=== PATIENT | female | born 1980 | race Hispanic/Latino ===

== ENCOUNTER 2018-03-08 16:21 | Emergency (ER) | payer OTHER, SELFPAY ==
[~2018-03-08 16:21] MED LIST: Sodium Chloride 0.9% 1,000 ML BAG ONE
[2018-03-08] MEDS ORDERED: Famotidine In NaCl 20 mg/50 ml Premix Bag ONE (16:56)
[2018-03-08] MEDS ORDERED: Ondansetron ODT 4 MG TAB ONE (16:56)
[2018-03-08] MEDS ORDERED: Fentanyl 100 MCG/2 ML VIAL ONE ×2 (16:56→18:30)
[2018-03-08 17:02] LABS: Hemoglobin 13.2 g/dL (12.0-16.0); Mean Corpuscular HGB CONC 32.2 g/dL (32.0-36.0); Mean Corpuscular Hemoglobin 27.6 pg (27.0-31.0); Mean Platelet Volume 5.7 fL (7.4-10.4); Platelet Count 278 thou/uL (130-400); RBC Distribution Width 12.4 % (11.5-14.5); Red Blood Cell (RBC) Count 4.77 mill/uL (4.20-5.40); White Blood Cell (WBC) Count 9.1 thou/uL (4.8-10.8)
--- NOTE | 2018-03-08 17:02 | CT ---
CT ABDOMEN AND PELVIS WITHOUT IV CONTRAST: 03/08/18 HISTORY: Abdominal pain. FINDINGS: Images through the lung bases are clear. The liver, spleen, and pancreas are unremarkable. There are numerous gallstones identified in the gallbladder. There are at least two larger gallstones measuring up to 2 cm. no evidence of pericholecystic edema or inflammation identified. No evidence o f biliary duct dilatation. The adrenal glands are unremarkable. Kidneys unremarkable. No hydronephrosis or urinary calculus. Urinary bladder is contracted and not ev aluated. Small bowel loops appear unremarkable. Appendix appears normal. Colon unremarkable. The uterus and a dnexa unremarkable. There is an umbilical hernia. Mesenteric fat herniates into the subcutaneous tissues. Hernia sac with in the subcutaneous tissues measures approximately 3.5 cm width. IMPRESSION: 1. Cholelithiasis. 2. Umbilical hernia. POS: STACIE
[2018-03-08 17:03] LABS: #Basophils 0.1 thou/uL (0.0-0.2); #Eosinphils 0.2 thou/uL (0.0-0.7); #Lymphocytes 2.2 thou/uL (1.20-3.40); #Monocytes 0.8 thou/uL (0.11-0.59); #Neutrophils 5.8 thou/uL (1.40-6.50); %Basophils 0.7 % (0.0-1.0); %Eosinophils 2.1 % (0.0-10.0); %Lymphocytes 24.7 % (21.0-51.0); %Neutrophils 63.6 % (42.0-75.0)
[2018-03-08 17:14] LABS: Anion Gap 14 mmol/L (10-20); BUN (Urea Nitrogen) 12 mg/dL (7.0-18.7); Calc. Creatinine Clearance 0 mL/min (70-130); Calcium 9.4 mg/dL (7.8-10.44); Carbon Dioxide 25 mmol/L (22-29); Chloride 107 mmol/L (98-107); Estimated GFR-MDRD Greater than 90; Glucose 91 mg/dL (70-105); Sodium 142 mmol/L (136-145)
[2018-03-08 17:17] LABS: Bilirubin Negative (Negative); Blood, Urine Trace (Negative); Clarity Hazy (Clear); Glucose, Urine (Dipstick) Negative (Negative); Leukocyte Negative (Negative); Nitrite Negative (Negative); Protein, Urine (Dipstick) Negative (Neg-Trace); Urobilinogen 0.2 mg/dL (0.2-1.0)
[2018-03-08 17:23] LABS: Bacteria/HPF Rare-Few HPF (None Seen); RBC/HPF 0-3 HPF (0-3); WBC/HPF 0-3 HPF (0-3)
== END 2018-03-08 18:50 | disposition home or self-care (01) ==
LOC: MADERS 16:21
DX: K80.80 Other cholelithiasis without obstruction (principal)
CPT/HCPCS: 36415; 74176; 80048; 81003; 81015; 82150; 85025; 96361; 96365; 96375; 96376; J3010; J7050; Q0162

== ENCOUNTER 2018-03-10 09:14 | Outpatient (CLI) | payer OTHER ==
--- NOTE | 2018-03-10 11:09 | ULT ---
RIGHT UPPER QUADRANT ULTRASOUND: DATE: 03/10/18. COMPARISON: None. HISTORY: Abdominal pain. Recent CT demonstrates cholelithiasis. TECHNIQUE: Multiplanar, toro scale sonographic imaging of the right upper quadrant obtained. FINDINGS: Dilatation is seen. The imaged portions of the pancreas appear unremarkable. The ditching machine engineer reports a positive Garcia's sign. There are numerous gallstones seen within the gall bladder lumen. However, there is no gallbladder wall thickening or pericholecystic fluid. The commo n bile duct is normal in caliber, measuring 3-4 mm. The right kidney measures 13.3 cm craniocaudal d imension and demonstrates no evidence for stone, hydronephrosis, or mass. IMPRESSION: Numerous stones are seen within the gallbladder lumen. The ditching machine engineer reports a positive Garcia's s ign, which could signify acute cholecystitis in the proper clinical setting. However, there is no ga llbladder wall thickening or pericholecystic fluid. Clinical correlation is required. If further im aging assessment is clinically warranted, hepatobiliary scan could be best assessed to evaluate paten cy of the cystic duct. CODE T POS: STACIE
== END 2018-03-10 09:15 | disposition home or self-care (01) ==
LOC: MADULT 09:14
PROVIDERS: ATTEND Family Medicine
DX: K80.20 Calculus of gallbladder without cholecystitis without obstruction (principal); R10.84 Generalized abdominal pain; R14.0 Abdominal distension (gaseous)
CPT/HCPCS: 76705

== ENCOUNTER 2018-08-04 17:09 | Outpatient (CLI) | payer MEDICAID ==
[2018-08-04 17:58] LABS: ALT (SGPT) 22 U/L (8-55); AST (SGOT) 18 U/L (5-34); Alkaline Phosphatase 65 U/L (40-150); Anion Gap 14 mmol/L (10-20); BUN (Urea Nitrogen) 15 mg/dL (7.0-18.7); Bilirubin, Total 0.3 mg/dL (0.2-1.2); Calc. Creatinine Clearance 0 mL/min (70-130); Calcium 9.5 mg/dL (7.8-10.44); Carbon Dioxide 26 mmol/L (22-29); Chloride 105 mmol/L (98-107); Estimated GFR-MDRD Greater than 90; Globulin 3.7 g/dL (2.4-3.5); Glucose 105 mg/dL (70-105); Potassium 4.5 mmol/L (3.5-5.1); Protein, Total 7.7 g/dL (6.0-8.3); Sodium 140 mmol/L (136-145)
[2018-08-04 18:03] LABS: #Basophils 0.1 thou/uL (0.0-0.2); #Eosinphils 0.3 thou/uL (0.0-0.7); #Lymphocytes 1.9 thou/uL (1.20-3.40); #Monocytes 0.7 thou/uL (0.11-0.59); #Neutrophils 5.5 thou/uL (1.40-6.50); %Basophils 1.1 % (0.0-1.0); %Eosinophils 3.1 % (0.0-10.0); %Lymphocytes 22.8 % (21.0-51.0); %Monocytes 8.1 % (0.0-10.0); Hemoglobin 12.7 g/dL (12.0-16.0); Mean Corpuscular HGB CONC 32.3 g/dL (32.0-36.0); Mean Corpuscular Hemoglobin 28.8 pg (27.0-31.0); Mean Corpuscular Volume 89.1 fL (78.0-98.0); Platelet Count 311 thou/uL (130-400); RBC Distribution Width 12.7 % (11.5-14.5); Red Blood Cell (RBC) Count 4.42 mill/uL (4.20-5.40); White Blood Cell (WBC) Count 8.5 thou/uL (4.8-10.8)
[2018-08-04 18:13] LABS: Thyroid Stimulating Hormone 1.3443 uIU/mL (0.35-4.94)
[2018-08-04 22:03] LABS: Free T4 (Free Thyroxine) 0.99 ng/dL (0.70-1.48)
== END 2018-08-04 17:10 | disposition home or self-care (01) ==
LOC: MADEKG 17:09
PROVIDERS: ATTEND Family Medicine
DX: I49.8 Other specified cardiac arrhythmias (principal)
CPT/HCPCS: 36415; 80053; 84439; 84443; 84481; 85025; 93005; 93010

== ENCOUNTER 2019-05-29 19:31 | Emergency (ER) | payer OTHER ==
[2019-05-29] MEDS ORDERED: Clindamycin 150 MG CAP ONE (20:43)
[2019-05-29 21:06] LABS: #Basophils 0.1 thou/uL (0.0-0.2); #Eosinphils 0.2 thou/uL (0.0-0.7); #Monocytes 0.6 thou/uL (0.11-0.59); %Basophils 0.9 % (0.0-1.0); %Lymphocytes 18.5 % (21.0-51.0); %Monocytes 5.6 % (0.0-10.0); Hemoglobin 12.5 g/dL (12.0-16.0); Mean Corpuscular HGB CONC 32.4 g/dL (32.0-36.0); Mean Corpuscular Hemoglobin 29.6 pg (27.0-31.0); Mean Corpuscular Volume 91.5 fL (78.0-98.0); Platelet Count 223 thou/uL (130-400); RBC Distribution Width 13.2 % (11.5-14.5); Red Blood Cell (RBC) Count 4.23 mill/uL (4.20-5.40); White Blood Cell (WBC) Count 10.9 thou/uL (4.8-10.8)
--- NOTE | 2019-05-29 21:23 | RAD ---
THREE VIEWS RIGHT ANKLE: 05/29/19 HISTORY: Pain. COMPARISON: None. FINDINGS: Joint spaces are preserved. Ankle mortise is intact. No fracture. Spurring of the calcaneus at the pl ann aponeurosis site is noted. IMPRESSION: Unremarkable three views right ankle. POS: PPP
[2019-05-29 21:25] LABS: ALT (SGPT) 22 U/L (8-55); AST (SGOT) 18 U/L (5-34); Albumin 3.7 g/dL (3.5-5.0); Alkaline Phosphatase 63 U/L (40-150); Anion Gap 16 mmol/L (10-20); BUN (Urea Nitrogen) 10 mg/dL (7.0-18.7); Bilirubin, Total 0.3 mg/dL (0.2-1.2); CRP (Inflammatory) 2.57 mg/dL (= or < 0.5); Calc. Creatinine Clearance 0 mL/min (70-130); Carbon Dioxide 24 mmol/L (22-29); Estimated GFR-MDRD Greater than 90; Globulin 3.4 g/dL (2.4-3.5); Glucose 80 mg/dL (70-105); Potassium 4.2 mmol/L (3.5-5.1); Protein, Total 7.1 g/dL (6.0-8.3); Sodium 139 mmol/L (136-145)
[2019-05-29 21:30] LABS: Chloride 103 mmol/L (98-107)
== END 2019-05-29 21:45 | disposition home or self-care (01) ==
LOC: MADERS 19:31
DX: L03.115 Cellulitis of right lower limb (principal); I10 Essential (primary) hypertension
CPT/HCPCS: 80053; 85025; 86140; 87070; 87077; 87186; 87205

== ENCOUNTER 2020-06-18 16:25 | Emergency (ER) | payer OTHER ==
[2020-06-18] MEDS ORDERED: Dexamethasone 4 MG TAB ONE (17:37)
[2020-06-18] MEDS ORDERED: Ibuprofen 800 MG TAB ONE (17:37)
== END 2020-06-18 17:40 | disposition home or self-care (01) ==
LOC: MADERS 16:25
DX: M75.92 Shoulder lesion, unspecified, left shoulder (principal)
CPT/HCPCS: 99283; J8540

== ENCOUNTER 2021-02-24 09:41 | Outpatient (CLI) | payer OTHER ==
[2021-02-24 10:05] LABS: #Basophils 0.1 thou/uL (0.0-0.2); #Eosinphils 0.2 thou/uL (0.0-0.7); #Lymphocytes 1.9 thou/uL (1.20-3.40); #Monocytes 0.5 thou/uL (0.11-0.59); #Neutrophils 6.9 thou/uL (1.40-6.50); %Basophils 0.9 % (0.0-1.0); %Eosinophils 2.6 % (0.0-10.0); %Lymphocytes 19.5 % (21.0-51.0); %Monocytes 5.2 % (0.0-10.0); %Neutrophils 71.8 % (42.0-75.0); Hemoglobin 13.7 g/dL (12.0-16.0); Mean Corpuscular HGB CONC 31.2 g/dL (32.0-36.0); Mean Corpuscular Hemoglobin 28.9 pg (27.0-31.0); Mean Corpuscular Volume 92.6 fL (78.0-98.0); Mean Platelet Volume 6.6 fL (7.4-10.4); Platelet Count 332 thou/uL (130-400); RBC Distribution Width 12.2 % (11.5-14.5); Red Blood Cell (RBC) Count 4.72 mill/uL (4.20-5.40); White Blood Cell (WBC) Count 9.6 thou/uL (4.8-10.8)
[2021-02-24 10:13] LABS: ALT (SGPT) 14 U/L (8-55); AST (SGOT) 14 U/L (5-34); Albumin 3.9 g/dL (3.5-5.0); Alkaline Phosphatase 85 U/L (40-110); Anion Gap 13 mmol/L (10-20); BUN (Urea Nitrogen) 12 mg/dL (7.0-18.7); Bilirubin, Total 0.5 mg/dL (0.2-1.2); Calc. Creatinine Clearance 0 mL/min (70-130); Calcium 9.5 mg/dL (7.8-10.44); Carbon Dioxide 27 mmol/L (22-29); Cardiac Risk 4.2 (Less than 4.5); Chloride 102 mmol/L (98-107); Cholesterol 190 mg/dl (< 200 Desired); Globulin 3.8 g/dL (2.4-3.5); Glucose 91 mg/dL (70-105); HDL Cholesterol 45 mg/dL (>60 Neg Risk); LDL Cholesterol, Calculated 121 mg/dL; Potassium 4.3 mmol/L (3.5-5.1); Protein, Total 7.7 g/dL (6.0-8.3); Sodium 138 mmol/L (136-145); Triglycerides 122 mg/dL (Less than 150)
[2021-02-24 10:33] LABS: Thyroid Stimulating Hormone 1.2326 uIU/mL (0.35-4.94)
[2021-02-24 16:49] LABS: Hemoglobin A1c 5.3 % (4.0-6.0)
[2021-02-24 17:19] LABS: Free T4 (Free Thyroxine) 0.88 ng/dL (0.70-1.48)
[2021-02-24 17:20] LABS: Vitamin D, 25 Hydroxy 18.3 ng/ml (> 30.0)
== END 2021-02-24 09:42 | disposition home or self-care (01) ==
LOC: MADLAB 09:41
PROVIDERS: ATTEND Family Medicine
DX: Z00.00 Encounter for general adult medical examination without abnormal findings (principal); R07.9 Chest pain, unspecified; R06.81 Apnea, not elsewhere classified; R42 Dizziness and giddiness
CPT/HCPCS: 36415; 71046; 80053; 80061; 82306; 83036; 84439; 84443; 84481; 85025

== ENCOUNTER 2021-11-27 14:42 | Outpatient (CLI) | payer OTHER ==
[2021-11-27 21:11] LABS: Hemoglobin A1c 5.5 % (4.0-6.0)
== END 2021-11-27 14:43 | disposition home or self-care (01) ==
LOC: MADRAD 14:42
PROVIDERS: ATTEND Family Medicine
DX: E66.01 Morbid (severe) obesity due to excess calories (principal)
CPT/HCPCS: 36415; 71046; 83036; 84443; 93005; 93010

== ENCOUNTER → 2022-08-08 | Day surgery (SDC) | payer OTHER ==
[~2022-08-08] MED LIST changes: +Multivit, Adult Inj 10 ML VIAL ONE; +Ondansetron PF 4 MG/2 ML Vial ONE; +Thiamine HCl 200 MG/2 ML VIAL ONE
== END | disposition home or self-care (01) ==
LOC: MADER/OP 15:01
PROVIDERS: ATTEND Surgery
DX: E86.0 Dehydration (principal); Z88.1 Allergy status to other antibiotic agents; Z88.2 Allergy status to sulfonamides; Z88.5 Allergy status to narcotic agent
CPT/HCPCS: J2405; J3411; J7050

== ENCOUNTER 2025-06-09 17:00 | Emergency (ER) | payer OTHER, SELFPAY ==
[2025-06-09 17:37] LABS: #Basophils 0.1 thou/uL (0.0-0.2); #Eosinophils 0.3 thou/uL (0.0-0.7); #Lymphocytes 1.7 thou/uL (1.20-3.40); #Monocytes 0.8 thou/uL (0.11-0.59); #Neutrophils 8.2 thou/uL (1.40-6.50); %Basophils 1.1 % (0.0-1.0); %Eosinophils 2.9 % (0.0-10.0); %Lymphocytes 15.0 % (21.0-51.0); %Monocytes 7.5 % (0.0-10.0); %Neutrophils 73.4 % (42.0-75.0); Hematocrit 36.9 % (36.0-47.0); Hemoglobin 11.7 g/dL (12.0-16.0); Mean Corpuscular Hemoglobin 27.3 pg (27.0-31.0); Mean Corpuscular Volume 86.2 fl (78.0-98.0); Platelet Count 290 10x3/uL (130-400); Red Blood Cell (RBC) Count 4.28 mill/uL (4.20-5.40); White Blood Cell (WBC) Count 11.1 10x3/uL (4.8-10.8)
[2025-06-09 17:56] LABS: ALT (SGPT) 17 U/L (Less than 34); AST (SGOT) 17 U/L (11-34); Albumin 3.6 g/dL (3.1-4.5); Alkaline Phosphatase 69 U/L (40-110); Anion Gap 15 mmol/L (10-20); BUN (Urea Nitrogen) 14 mg/dL (7.0-18.7); Bilirubin, Total 0.7 mg/dL (0.3-1.2); Calc. Creatinine Clearance 0 mL/min (70-130); Calcium 8.9 mg/dL (7.8-10.44); Carbon Dioxide 22 mmol/L (22-29); Chloride 106 mmol/L (98-107); Globulin 4.2 g/dL (2.4-3.5); Glucose 103 mg/dL (70-105); Potassium 3.9 mmol/L (3.5-5.1); Sodium 139 mmol/L (136-145)
== END 2025-06-09 18:06 | disposition home or self-care (01) ==
LOC: MADERS 17:00
DX: O20.9 Hemorrhage in early pregnancy, unspecified (principal); O99.891 Other specified diseases and conditions complicating pregnancy; R10.30 Lower abdominal pain, unspecified; Z3A.08 8 weeks gestation of pregnancy
CPT/HCPCS: 36415; 80053; 84702; 85025; 86900; 86901; 99284